=== PATIENT | male | born 1975 | race Caucasian/White ===

== ENCOUNTER 2021-08-14 17:43 | Emergency (ER) | payer OTHER, SELFPAY ==
[2021-08-14] VITALS (11 sets, daily range): BP systolic 112–150; BP diastolic 56–92; PULSE 88–118; RESP 15–22; TEMP 36.4; O2SAT 96–100
--- NOTE | ~2021-08-14 | XR_ITS ---
EXAMINATION: XR chest 1V portable EXAM DATE: 08/14/2021 18:28 INDICATION: Shortness of breath, palpitations, dizziness. History hypertension. TECHNIQUE: Portable AP frontal chest x-ray was obtained. There is no prior study for comparison. FINDINGS: The lungs are clear. There are no pleural effusions. The cardiomediastinal silhouette is within normal limits. There is no pneumothorax suspected. The bones and soft tissues are unremarkab le. IMPRESSION: No acute cardiopulmonary findings. Reviewed, dictated and finalized at location A. [facility] [employer]
--- NOTE | 2021-08-14 17:45 | ECG_ITS ---
Measurements Intervals [place] Rate: 106 P: 34 SC: 182 QRS: 73 QRSD: 96 T: -5 QT: 320 QTc: 426 Interpretive Statements SINUS TACHYCARDIA BORDERLINE ST-T WAVE ABNORMALITY- INFERIOR LEADS BASELINE ARTIFACT- II, III, AVR, AVF, V3-V6 BORDERLINE ECG Electronically Signed On 08-14-2021 18:43:36 TEST DRILLER by Anastacio Blandon D.O.
--- NOTE | 2021-08-14 18:11 | ED.GENADULT ---
HPI - General Adult General Chief complaint: Dizziness <Katey Bill MD - Last Filed: 08/14/21 19:07> Stated complaint: dizziness <Katey Bill MD - Last Filed: 08/14/21 19:07> Time Seen by Provider: 08/14/21 17:51 <Katey Bill MD - Last Filed: 08/14/21 19:07> Source: patient, EMS and RN notes reviewed <Katey Bill MD - Last Filed: 08/14/21 19:07> Mode of arrival: EMS <Katey Bill MD - Last Filed: 08/14/21 19:07> Limitations: no limitations <Katey Bill MD - Last Filed: 08/14/21 19:07> History of Present Illness HPI narrative: Patient is 46 years old white male came by ambulance to the emergency room because of palpitation, lightheadedness and shortness of breath. History of hypertension, on losartan. History of GERD. Patient developed some pressure in the head 6 hours prior to arrival to the emergency room, blood pressure was 160/100 which is unusual for the patient, took extra 100 mg of losartan, subsequently blood pressure improved. 4 hours later patient was sitting to eat suddenly developed palpitation, lightheadedness and slight shortness of breath. Blood pressure at that time was 180/110, heart rate was 160 bpm lasted for less than 5 minutes then resolved. 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 Fully vaccinated for COVID-19. Currently complaining of slight pressure at the left side of his neck. Patient denies any extra stress lately. Patient does not smoke drinks occasionally, denies using drugs. <Katey Bill MD - Last Filed: 08/14/21 19:07> Related Data Allergies/adverse reactions: Allergies Allergy/AdvReac Type Severity Reaction Status Date / Time Penicillins Allergy Rash Verified 08/14/21 17:55 Sulfa (Sulfonamide Allergy Rash Verified 08/14/21 17:55 Antibiotics) <Katey Bill MD - Last Filed: 08/14/21 19:07> Review of Systems Review of Systems: CONSTITUTIONAL: Denies fever, chills, or sweats. EYES: Denies visual changes, redness, or discharge. ENT: Denies rhinorrhea, congestion, sore throat, or otalgia. CARDIOVASCULAR: Denies chest pain, palpitations, or edema. RESPIRATORY: Denies cough or dyspnea. GASTROINTESTINAL: Denies abdominal pain, nausea, vomiting, or diarrhea. GENITOURINARY: Denies dysuria or hematuria. SKIN: Denies rash or itching. MUSCULOSKELETAL: Denies back pain, joint pain, or myalgia. NEUROLOGIC: Denies headache, numbness, or weakness. PSYCHIATRIC: Denies anxiety or depression. <Katey Bill MD - Last Filed: 08/14/21 19:07> Exam Narrative: General appearance: Well-developed, well-nourished, looks anxious, intermittent sighing Skin: Normal color Head: Normocephalic, nontraumatic Eyes: Clear conjunctiva ENT: Oropharynx normal, ears normal, nose normal Neck: Supple, nontender Chest and respiratory: Airway patent, no respiratory distress, no accessory muscle use Heart: Regular rate/rhythm, tachycardia Abdomen: Soft, nontender, no organomegaly, quiet bowel sounds Vascular: Normal peripheral pulses, normal capillary refill. Musculoskeletal: Normal range of motion, nontender back Neurologic: Alert and oriented ?3, VACUUM REPAIRER is normal as tested, no gross motor deficit <Katey Bill MD - Last Filed: 08/14/21 19:07> Course Course Emergency Course: Improving <Katey Bill MD - Last Filed: 08/14/21 19:07> D-dimer was negative and TSH was in the normal range <Delgado Jaffe MD - Last Filed: 08/14/21 20:09> Vital Signs Vital signs: Vital Signs Pulse Rate 110 H 08/14/21 17:46 Respiratory Rate 17 08/14/21 17:46 Blood Pressure 150/92 H 08/14/21 17:46 Temperature 36.4 C 08/14/21 17:50 Pulse Rate 88 08/14/21
[2021-08-14 18:40] LABS: Basophils Absolute Auto 0.1 K/mm3 (0.0-0.1); Basophils Percent Auto 0.8 % (0.2-1.2); Eosinophils Absolute Auto 0.1 K/mm3 (0-0.3); Eosinophils Percent Auto 1.3 % (0-4.4); Hematocrit 41.1 % (42.0-52.0); Hemoglobin 14.1 g/dL (14.0-18.0); Immature Granulocyte Absolute 0.04 K/mm3 (0.00-0.031); Immature Granulocyte Percent A 0.5 % (0-0.5); Lymphocytes Absolute Auto 1.72 K/mm3 (0.9-3.2); Mean Corpuscular HGB Conc 34.3 g/dl (32-36); Mean Corpuscular Hemoglobin 31.6 pg (26-34); Mean Corpuscular Volume 92.2 fl (80-100); Mean Platelet Volume 11.2 fl (7.4-10.4); Monocytes Absolute Auto 0.9 K/mm3 (0.1-0.6); Monocytes Percent Auto 10.9 % (2.6-8.5); Neutrophils Percent Auto 64.5 % (45.5-73.1); Platelet Count Result 231 k/mm3 (150-375); Red Blood Count 4.46 M/mm3 (4.6-6.20); Red Cell Distribution Width 12.4 % (11.5-14.5); White Blood Count 7.8 K/mm3 (4.5-10.0)
[2021-08-14 18:47] LABS: Add Urine Microscopic? NO; Appearance Urine Clear (Clear); Bilirubin Urine Negative (Negative); Blood Urine Negative (Negative); Color Urine Straw (Yellow); Glucose Urine UA Negative (Negative); Ketones Urine Negative (Negative); Leukocyte Esterase Ur Negative LEU/UL (Negative); Nitrate Urine Negative (Negative); Protein Urine Negative (Negative); Urobilinogen Urine Negative mg/dL (<2.0)
[2021-08-14 18:49] LABS: Alanine Aminotransferase 32 U/L (4-50); Albumin Level 4.9 g/dL (3.5-5.1); Alkaline Phosphatase 55 U/L (38-126); Anion Gap 10 mmol/L (8-16); Aspartate Amino Transferase 30 U/L (17-59); Bilirubin,Total 0.6 mg/dL (0.2-1.3); Blood Urea Nitrogen 17 mg/dL (9-20); Calcium 9.4 mg/dL (8.4-10.2); Carbon Dioxide 27 mmol/L (22-30); Chloride 103 mmol/L (98-107); Estimated CRCL calculation 111 ml/min; Estimated Glomerular Filt Rate > 60; Glucose 103 mg/dL (65-110); Sodium 140 mmol/L (137-145)
[2021-08-14 18:50] LABS: Specific Grav Ur 1.004 (1.001-1.035)
--- NOTE | 2021-08-14 18:51 | PC.NURSE ---
Patient states he does not want Ativan, reports he is feeling a lot better.
[2021-08-14 18:54] LABS: INR 0.9
[2021-08-14 18:56] LABS: Partial Thromboplastin Time 25.9 SECONDS (22.3-36.8)
[2021-08-14 18:59] LABS: Amphetamine Screen Urine Negative (Negative); Barbiturate Screen Urine Negative (Negative); Benzodiazepines Screen Urine Negative (Negative); Cannabinoid Screen Urine Negative (Negative); Cocaine Screen Urine Negative (Negative); Methadone Screen Urine Negative (Negative); Opiate Screen Urine Negative (Negative); Phencyclidine Screen Urine Negative (Negative)
[2021-08-14 19:00] LABS: Troponin I < 0.012 ng/mL (0.000-0.034)
[2021-08-14 19:11] LABS: D Dimer < 0.22 ug/mL (<0.48)
== END 2021-08-14 20:16 | disposition home or self-care (01) ==
PROVIDERS: Emergency Medicine; Emergency Provider Emergency Medicine; PCP Internal Medicine
DX: R00.2 Palpitations (principal); I10 Essential (primary) hypertension; R06.02 Shortness of breath; Z79.899 Other long term (current) drug therapy; Z51.81 Encounter for therapeutic drug level monitoring; Z87.19 Personal history of other diseases of the digestive system
CPT/HCPCS: 36415; 71045; 80053; 80307; 81003; 84443; 84484; 85025; 85380; 85610; 85730; 93005; 99284

== ENCOUNTER 2022-01-05 10:51 | Outpatient (CLI) | payer OTHER, SELFPAY ==
--- NOTE | 2022-01-08 15:40 | WPDHOMESLEEP ---
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 He does not wake up from sleep feeling short of breath. He occasionally awakens with heartburn, belching or coughing. He alwasy snores loudly enough that others complain. He occasionally has trouble sleeping with a cold. He does wake up gasping for breath at night or having breathing problems observed by others. he occasionally sweats excessively at night, occasionally notices his heart pounding or beating irregularly at night, occasionally falls asleep during the day and falls asleep involuntarily however he never falls asleep while driving. He does not have loss of muscle tone with strong emotion. He does not have daytime difficulties due to excessive sleepiness. He does not feel paralyzed on waking or falling asleep and does not have vivid dreamlike scenes upon awakening or falling asleep. He does not feel afraid to go to sleep. He does not have nightmares. He occasionally remembers his dreams. He frequently has racing thoughts. He does not feel sad, depressed or anxious. He does not have muscular tension, did not notice parts his body jerking and he does not kick at night. He does not have crawling or aching in his legs nor any kind of leg pain at night. He does not have morning jaw pain. He occasionally grinds his teeth during sleep. He is not bothered by pain during the day, and he is not awakened by pain during the night. He does not wake up feeling stiff in the morning, does not wake with sore or achy muscles and does not wake with neck or spine pain. He has headaches and palpitations. Normal bedtime is between 10:00 p.m. and 11:00 p.m., falling asleep within 15 minutes, waking once during the night at most and sometimes he does not wake at all. When he wakes during the night, he gets a drink of water, returning to sleep within 15-20 minutes. He wakes for the day at 5:00 a.m. on weekdays and 7:00 a.m. on weekends. He does not take naps. A short nap may be refreshing. Most of hte time he eels refreshed on waking. He feels better in the morning compared to other times of day. Habits: Never smoked tobacco. Caffeine: 3 servings a day. Alcohol 1-2 per day. No recreational drugs. [facility] Past Medical History Medical History GERD (gastroesophageal reflux disease) Hypertension Surgical History Surgical History (Updated 01/08/22 @ 16:54 by Cheryl Rodriguez MD) History of repair of anterior cruciate ligament of left knee History of surgical removal of skin lesion History of vasectomy Family History Family History (Updated 01/08/22 @ 16:56 by Cheryl Rodriguez MD) Father Hypertension Malignant neoplasm of prostate Grandparent Diabetes mellitus CAD (coronary artery disease) Other Depression Social History Social History (Updated 01/08/22 @ 16:51 by Cheryl Rodriguez MD) Smoking status: Never smoker Alcohol intake: current Drinks per week: 1 Alcohol use details: 1-2 drinks per week Substance use: never 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 This study was scored using CMS guidelines. Sleep Architecture Not applicable for home sleep test.
[2022-01-08 17:38] VITALS: BMI 26.6
== END 2022-01-06 12:32 | disposition home or self-care (01) ==
LOC: ANHCSM 10:56
PROVIDERS: PCP Internal Medicine; Visit Provider Internal Medicine Pulmonary Disease
DX: G47.33 Obstructive sleep apnea (adult) (pediatric) (principal)
CPT/HCPCS: 95806